=== PATIENT | male | born 1995 | race Caucasian/White ===

== ENCOUNTER 2024-10-08 14:58 | Emergency (ER) | payer SELFPAY ==
[2024-10-08 14:58] VITALS: BP 178/98; PULSE 74; RESP 18; TEMP 36.2; O2SAT 100; BMI 40.8
--- NOTE | 2024-10-08 15:07 | ED.RN ---
Patient states he was holding a kinked concrete hose from a concrete truck this morning when the hose lifted him off the ground and slammed him into the barn wall. Patient states this will not be a workers comp claim
--- NOTE | 2024-10-08 15:10 | RAD_ITS ---
STUDY: X-RAY - RIGHT SHOULDER REASON FOR EXAM: Male, 29 years old. Injury TECHNIQUE: 4 view(s) of the shoulder. COMPARISON: None. FINDINGS: Normal glenohumeral articulation. Normal acromioclavicular joint. Normal acromion. Normal humeral head and visualized proximal humerus. The soft tissue structures are unremarkable. Normal visualized pulmonary apex. RAD/Shoulder min 2 Views IMPRESSION: Normal x-ray examination of the shoulder. Electronically Signed: Saud Villa MD at 15:32 EST ,
--- NOTE | 2024-10-08 15:11 | EX.ED.UPPERE ---
HPI History of Present Illness Chief Complaint: Upper Extremity Injury Detail of Chief Complaint: Right shoulder injury Informant: patient Narrative Narrative: Patient presents to the emergency department complaint of injury to his right shoulder that occurred while at work today. 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 Patient complained of pain to the right shoulder with movement. Complains of numbness and tingling to the right hand. Denies weakness in extremity. Denies head injury. Patient does not want to file Workmen's Comp. as this is his company. [facility] Medical History (Updated 10/08/24 @ 15:[address] Jean Easton, DO) Inguinal hernia Home Medications ?Medication ?Instructions ?Recorded ?Last Taken ?Type hydrocodone-acetaminophen 5-325mg 1 tab PO Q4H PRN PRN Pain 2 days 10/08/24 Unknown Rx 5mg-325mg #10 TABLETS Allergy/AdvReac Type Severity Reaction Status Date / Time No Known Allergies Allergy Verified 10/08/24 15:03 Surgical History (Updated 10/08/24 @ 15:12 by Ysabel Hendricks) History of hernia surgery Social History Smoking Status: Heavy Smoker (>10/day) ROS ROS ED Review of Systems ROS Unobtainable: other Constitutional Constitutional ED: Reports lethargy; Denies chills, fever(s), sweats or weight loss Eyes Eyes: Denies blurry vision, change in vision or diplopia ENT ENT ED: Denies rhinorrhea or sore throat Cardiovascular Cardiovascular: Denies chest pain, orthopnea or racing heartbeat Respiratory/Chest Respiratory/Chest: Denies cough, dyspnea, dyspnea on exertion, orthopnea or sputum Gastrointestinal Gastrointestinal: Denies abdominal pain, diarrhea, nausea or vomiting Genitourinary Genitourinary ED: Denies dysuria, hematuria or urinary frequency Musculoskeletal Musculoskeletal: Reports other Details: Right shoulder pain/injury ; Denies arthralgias, back pain, myalgias or neck pain Integumentary Denies abscess, Abrasions or rash Neurologic Neurologic: Denies headache(s) or weakness Psychiatric Psychiatric: Denies anxiety, depression or suicidal thoughts Endocrine Endocrinology: Denies polydipsia, polyphagia or polyuria Hematologic/Lymphatic Hematologic/Lymphatic: Denies easy bleeding, easy bruising or lymphadenopathy Allergic/Immunologic Allergic/Immunologic ED: Denies mouth swelling, tongue swelling or urticaria EXAM Physical Exam Const Vital Signs: 10/08/24 14:58 Temperature 97.2 F L Temperature Source Temporal Pulse Rate 74 Respiratory Rate 18 Blood Pressure 178/98 H Blood Pressure Mean 124 Pulse Ox 100 Positive well nourished and well developed General Appearance ED: well developed and NAD HEENT Reports TM's clear and moist mucous membranes normocephalic and atraumatic; Negative for trauma or tenderness Tympanic Membrane ED: Yes TM's clear Eyes PERRL and EOMs intact bilaterally General Eye ED: Negative for pale conjunctiva or scleral icterus Neck no lymphadenopathy, supple and no JVD General: Negative for tenderness Chest Wall inspection of chest normal and palpation of chest normal Chest: Negative for tenderness Resp normal respiratory effort and clear to auscultation bilaterally Effort and Inspection: Negative for respiratory distress or pain with movement Auscultation: Negative for rhonchi, wheezes or diminished lung sounds Cardio regular rate, regular rhythm, S1 normal heart sound, S2 normal heart sound and no murmurs Peripheral Pulses: pulses 2+ throughout GI normal to inspection, nondistended, normoactive bowel sounds, soft to palpation, non-tender, non-distended and no masses Back/Spine no CVA tenderness and no thoracic nor lumbar tenderness Extremity Extremity Narrative: Right shoulder-no obvious deformity. There is no ecchymosis or bruising. Neurovascularly intact distally. He has limited range of motion in abduction secondary to pain. No sulcus sign. General Extremety ED: Negative for edema General Extremity: Negative for edema Neuro oriented x3, CN's II-XII intact bilaterally, no sensory deficits noted and gait normal Sensorium / Orientation: awake, alert, oriented to person, oriented to place and oriented to time Motor Exam: strength 5/5 throughout and strength abnormal Psych mental status grossly normal Skin no rashes or lesions noted and no wounds MDM MDM MDM Narrative Medical decision making narrative: Patient with injury to right shoulder. Will obtain x-rays to evaluate for any bony injury or dislocation which my suspicion is low. 2 view x-rays of the right shoulder obtained interpreted by myself as no evidence of fracture or dislocation. Radiology in agreement. This point he will be placed in a sling. He will be given a prescription for a few [place] for pain. Will refer to orthopedics for follow-up. Patient understands that he may require further imaging if symptoms do not resolve such as possibly MRI to evaluate for ligamentous injury or rotator cuff injury Radiography Diagnostic Testin view x-rays of right shoulder obtained interpreted by myself as no evidence of fracture or dislocation. Discharge Plan Triage Chief Complaint: Upper Extremity Injury ED Provider: Jean Easton Dx/Rx/DC Orders Clinical Impression: Sprain of shoulder, right Instructions: ED Shoulder Sprain Prescriptions: New hydrocodone-acetaminophen 5-325 mg tablet 1 tab PO Q4H PRN PRN (Reason: Pain) 2 Days Qty: 10 0RF Primary Care Provider: Care Physician,No Primary Referrals: Antoine Osullivan MD [Non-Staff] - Vega Lucio MD [Med Staff - Active Staff] - 5-7 Days Print Language: British Disposition Disposition: Home, Self Care Discharge Date/Time: 10/08/24 15:59
[2024-10-08 15:58] VITALS: BP 178/98; PULSE 74; RESP 18; TEMP 36.2; O2SAT 100
--- NOTE | 2024-10-08 15:59 | ED.RN ---
Ice placed to shoulder
== END 2024-10-08 15:59 | disposition home or self-care (01) ==
LOC: ED 15:46
PROVIDERS: Emergency Provider Emergency Medicine; Visit Provider Emergency Medicine
DX: S43.401A Unspecified sprain of right shoulder joint, initial encounter (principal); X58.XXXA Exposure to other specified factors, initial encounter; Y93.89 Activity, other specified; Y99.0 Civilian activity done for income or pay; F17.200 Nicotine dependence, unspecified, uncomplicated
CPT/HCPCS: 73030; 99283

== ENCOUNTER 2024-11-12 22:01 | Emergency (ER) | payer SELFPAY ==
[2024-11-12 22:02] VITALS: BP 160/85; PULSE 99; RESP 20; TEMP 36.4; O2SAT 99; BMI 40.5
--- NOTE | 2024-11-12 22:16 | EDS_ITS ---
HPI History of Present Illness Chief Complaint: Allergic Reaction Informant: patient Onset/Context/Timing Onset: Today Context: Sudden Onset Timing: Continuous Current Severity: Gone Maximum Severity: Moderate Narrative Narrative: Healthy 29-year-old male no seen past medical history. Said he come home from work today. Had a headache his takes Topamax for migraines so he took 40 mg of that. Said he took it around 9:30 PM. Soon after taking it he thought he was having allergic reaction. He felt like he was having swelling in his lower throat. He denies any rash or itching. He denies any swelling of his tongue or lips. He is never had allergic reaction before that he can remember. He said he is never taken Topamax before. He denies any other symptoms. Said on the way in he was feeling worse but now the symptoms have resolved. He took the medication at 9:30 pm he had a reaction within 15 minutes it is now 1015 and he is feeling back to baseline. Prior similar symptoms: No Recent Illness/Hospitalization: No PFSH PFSH Medical History Inguinal hernia Allergy/AdvReac Type Severity Reaction Status Date / Time topiramate (From Topamax) Allergy Severe Swelling Verified 11/12/24 22:06 Surgical History History of hernia surgery Social History Smoking Status: Heavy Smoker (>10/day) ROS ROS ED ROS Narrative Patient denies any recent illness the last 2 weeks other than what sounds like a viral URI which is resolved. Constitutional Constitutional ED: Denies chills or fever(s) Eyes Eyes: Denies blurry vision ENT ENT ED: Denies ear pain Cardiovascular Cardiovascular: Denies chest pain Respiratory/Chest Respiratory/Chest: Denies cough Gastrointestinal Gastrointestinal: Denies abdominal pain Genitourinary Genitourinary ED: Denies dysuria Musculoskeletal Musculoskeletal: Denies arthralgias Integumentary Denies abscess Neurologic Neurologic: Denies headache(s) Psychiatric Psychiatric: Denies anxiety Endocrine Endocrinology: Denies cold intolerance Hematologic/Lymphatic Hematologic/Lymphatic: Reports none Allergic/Immunologic Allergic/Immunologic ED: Denies mouth swelling, tongue swelling or urticaria EXAM Physical Exam Narrative Exam Narrative: Well-appearing 29-year-old male. Vital signs are stable afebrile. Pulse ox 9 9% on room air no signs of hypoxia. He sitting upright in bed. He looks perfectly fine. He is in no distress. H EENT exam pupils round react to light. Tongue and lips are normal. No swelling. Posterior pharynx normal. No trouble swallowing or breathing. No drooling or stridor. Neck nontender. Lungs clear to auscultation bilaterally. Heart regular rhythm rate about 90 no murmur. Chest wall ribs nontender. Abdomen soft nontender. Moving all 4 extremities. Nontender no edema. No rashes. Normal strength. Back nontender. No rash. Neurologically is awake and alert no focal motor deficits. Currently at this moment there is no signs of acute allergic reaction. Const Vital Signs: 11/12/24 22:02 Temperature 97.6 F L Temperature Source Temporal Pulse Rate 99 Respiratory Rate 20 H Blood Pressure 160/85 H Blood Pressure Mean 110 Pulse Ox 99 Oxygen Delivery Method Room Air Positive well nourished and well developed; Negative for cachectic, contractures or unkempt General Appearance ED: well developed and NAD; Negative for unkempt, cachectic, contractures, cyanotic, diaphoretic or pallor Nutritional Appearance: Negative for cachectic HEENT Reports moist mucous membranes Negative for trauma or tenderness Eyes PERRL and EOMs intact bilaterally General Eye ED: Negative for pale conjunctiva or scleral icterus Neck no lymphadenopathy, supple and no JVD General: Negative for tenderness Chest Wall inspection of chest normal and palpation of chest normal Resp normal respiratory effort and clear to auscultation bilaterally Effort and Inspection: Negative for retractions Auscultation: Negative for rales, rhonchi, wheezes or diminished lung sounds Cardio regular rate, regular rhythm, S1 normal heart sound, S2 normal heart sound and no murmurs GI normal to inspection, nondistended, normoactive bowel sounds, non-tender, non- distended and no masses Palpation: soft; Negative for tender, guarding or rebound tenderness present Back/Spine no CVA tenderness General Back: Negative for CVA tenderness Cervical Spine: Negative for cervical spine tenderness Thoracic Spine / Upper Back: Negative for thoracic spinal tenderness or paraspinal muscle tenderness Lumbar Spine / Lower Back: Negative for lumbar spinal tenderness Extremity normal to inspection General Extremety ED: Negative for edema or tenderness General Extremity: Negative for edema Neuro oriented x3, CN's II-XII intact bilaterally and no sensory deficits noted Sensorium / Orientation: alert; Negative for orientation impaired, lethargic or stuporous Motor Exam: strength 5/5 throughout Psych mental status grossly normal Appearance: Negative for unkempt Attitude: No agitated Mood & Affect: Negative for depressed, anxious or tearful Skin no rashes or lesions noted, no wounds and skin turgor normal General Skin Exam: elasticity normal; Negative for jaundice or pallor Lesions: No lesion noted Rashes: No rashes noted Trauma: Negative for abrasion Wounds: Negative for wounds noted MDM MDM MDM Narrative Medical decision making narrative: 29-year-old male possibly may have had allergic reaction to Topamax. Currently his exam is normal. There is no signs of a reaction currently. He has no lip or tongue swelling. No trouble breathing. No stridor or drooling. There is no rash. He is not itching. He will be observed. I do not think he needs any medications. There is no specific testing needs from the emergency department standpoint. Repeat exam at 10:50 p.m. patient doing well. No distress. No symptoms. No signs of allergic reaction. Lips and tongue are normal. Breathing normal without wheezing. Skin without rash. He is totally back to baseline says he feels fine. Even the headache he had that he took the Topamax for is completely resolved. This may have been an allergic reaction the way explains it to me he has no physical findings here he has been observed for about an hour he will be discharged to home. History & Record Review Discussion w/independent historian: Patient Discharge Plan Triage Chief Complaint: Allergic Reaction ED Provider: Julien Felder Dx/Rx/DC Orders Clinical Impression: Allergic reaction Instructions: ED General Allergic Reactions Primary Care Provider: Care Physician,No Primary Referrals: Care Physician,No Primary [Primary Care Provider] - Activity Restrictions/Additional Instructions: You should not have any other symptoms tonight. If you would develop a rash or swelling you can take 25 or 50 mg of Benadryl. She would notice tongue or lip swelling return to the emergency department. Print Language: Georgian Disposition Disposition: Home, Self Care
[2024-11-12 22:53] VITALS: BP 127/87; PULSE 66; RESP 16; TEMP 36.6; O2SAT 100
== END 2024-11-12 22:53 | disposition home or self-care (01) ==
LOC: ED 22:35
PROVIDERS: Emergency Provider Emergency Medicine; Referring Provider Emergency Medicine; Visit Provider Emergency Medicine
DX: T78.40XA Allergy, unspecified, initial encounter (principal); F17.200 Nicotine dependence, unspecified, uncomplicated
CPT/HCPCS: 99282

== ENCOUNTER 2025-03-03 21:01 | Emergency (ER) | payer SELFPAY ==
[2025-03-03 21:01] VITALS: BP 152/89; PULSE 85; RESP 16; TEMP 36.8; O2SAT 96; BMI 39.4
--- NOTE | 2025-03-03 21:10 | ED.RN ---
attempted to return eye strip. barcode not accepted. this RN still put in bin
--- NOTE | 2025-03-03 21:30 | EX.ED.DYSGE1 ---
HPI <NAZ Burgos - Last Filed: 03/03/25 21:39> History of Present Illness Chief Complaint: Foreign Body Narrative Narrative: Patient is a 29-year-old male with no significant medical history, patient presents to the emerged part with left eye pain. 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 There is a small foreign body to the left eye. Here for evaluation. [facility] <NAZ Burgos - Last Filed: 03/03/25 21:39> [facility] Medical History Inguinal hernia Home Medications ?Medication ?Instructions ?Recorded ?Last Taken ?Type bacitracin 500 unit/gram eye 1 applic LEFT EYE .Q6 5 days #3.5 03/03/25 Unknown Rx ointment grams Allergy/AdvReac Type Severity Reaction Status Date / Time topiramate (From Topamax) Allergy Severe Swelling Verified 03/03/25 21:02 Surgical History History of hernia surgery Social History Smoking Status: Heavy Smoker (>10/day) ROS <NAZ Burgos - Last Filed: 03/03/25 21:39> ROS ED ROS Narrative Constitutional: Negative for fever, chills, weight loss, weakness Eyes: Negative for vision loss, vision change, double vision ENT: Negative for any sore throat, ear pain, congestion. Positive for left eye pain Cardiovascular: Negative for any chest pain, tightness, palpitations Respiratory: Negative for any cough, sputum production, hemoptysis, dyspnea, dyspnea on exertion, orthopnea Gastrointestinal: Negative for any abdominal pain, nausea, vomiting, diarrhea, constipation, blood in stool, blood in vomit : Negative for any urinary frequency, dysuria, retention, blood in urine Muscle skeletal: Negative for any neck pain, back pain Neurological: Negative for any headache, syncope, dizziness Skin: Negative for any rashes, itching, abrasions, lacerations Psychiatric: Negative for any depression, anxiety, stress, suicidal ideation, homicidal ideation Hematologic: Negative for any excessive bruising, easy bleeding EXAM <NAZ Burgos - Last Filed: 03/03/25 21:39> Physical Exam Narrative Exam Narrative: Vital signs reviewed. HEET: Head normocephalic atraumatic, TMs clear bilaterally. Posterior pharynx is clear, moist mucous membranes. Nares clear bilaterally. I was able to tetracaine the eye to evaluate. Patient did have a foreign body to the 3:00 area of the left cornea. This is me looking at the patient. No other evaluation. Neck: Supple with no lymphadenopathy or tenderness. No signs of meningismus. Cardiac: Regular rate and rhythm no murmurs gallops or rubs, equal peripheral pulses bilaterally. Respiratory: Lungs clear to auscultation bilaterally. No chest tenderness. Abdomen: Soft, nontender, nondistended. No abdominal bruit or pulsatile masses. No hepatosplenomegaly Extremities: No peripheral edema, no signs of gross trauma or deformity. Active full range of motion of all extremities. Neuro: Cranial nerves II through XII intact, no focal neurological deficits. Skin: Clean dry and intact with no rash, purpura, petechiae, vesicles or pustules. Backs/flank: No CVA tenderness, no midline spinal tenderness, no deformity. Psych: Normal mood and affect. No SI, HI or acute psychosis. Const Vital Signs: 03/03/25 21:01 03/03/25 21:15 Temperature 98.2 F Temperature Source Oral Pulse Rate 85 Respiratory Rate 16 Respiratory Effort Normal Non-Labored Respiratory Pattern Normal Blood Pressure 152/89 H Blood Pressure Mean 110 Pulse Ox 96 Oxygen Delivery Method Room Air <Dr. Maurice Ross, DO - Last Filed: 03/03/25 21:37> Physical Exam Const Vital Signs: 03/03/25 21:01 03/03/25 21:15 Temperature 98.2 F Temperature Source Oral Pulse Rate 85 Respiratory Rate 16 Respiratory Effort Normal Non-Labored Respiratory Pattern Normal Blood Pressure 152/89 H Blood Pressure Mean 110 Pulse Ox 96 Oxygen Delivery Method Room Air MDM <NAZ Burgos - Last Filed: 03/03/25 21:39> [facility] Treatment and Re-Evaluation :: Differential diagnosis includes however is not limited to: Foreign body, corneal abrasion, globe rupture, ulcer Patient appears generally well, vital signs are stable, patient is nontoxic-appearing. Presenting to the emergency department with complaints of foreign body left eye. I was able to tetracaine in the eye, fluorescein stain, there was corneal abrasion with a foreign body at the 3:00 area of the cornea. There is no Sidel sign, no uptake. I was able to get 25-gauge needle and flick out the foreign body piece. Patient still feels slight irritation, this will be irrigated with a Law lens. Bacitracin ophthalmic ointment. Patient will follow-up with both his PCP as well as a eye doctor. Agreeable with this plan. I did offer patient tetanus vaccination he refused at this time. All questions answered, patient struck to return for any worsening symptoms <Dr. Maurice Ross, DO - Last Filed: 03/03/25 21:37> [facility] Narrative Medical decision making narrative: I have personally performed a face to face assessment of the patient and have reviewed the HEATHER Note. I performed a substantive portion of the visit including all aspects of the following. My brink findings include: History: Patient presents with foreign body sensation in his left eye that occurred today. Patient states he was welding and after he was done welding, he flipped his mask up. Patient states that he noted 1 other spot that needed welded. Patient states he touched it with the welding stick and something flew into his left eye. Patient denies any visual changes. Patient denies any headache. Exam: Pupils are equal, round, and reactive to light bilaterally. Extraocular muscles are intact. Conjunctiva was injected left. There is a corneal abrasion over the inferior aspect of the left cornea. There are no foreign bodies visualized. Anterior chamber was clear. There is no hyphema. Funduscopic examination was not tolerated. Medical Decision Making: The foreign body was removed by the HEATHER under my supervision. Patient states he still feels like there may be something in his left eye. Patient feels like this is more on the medial conjunctival area. There is a questionable foreign body over this area. The left eye was irrigated with normal saline through a Law lens. Patient was given bacitracin ophthalmic ointment. Patient was instructed to follow-up with ophthalmology in 1 to 2 days. Patient was instructed to return if worse in any way. Patient understood and was agreeable with the plan. All questions were answered. Discharge Plan Triage Chief Complaint: Foreign Body ED Midlevel Provider: True Morrissey ED Provider: Maurice Ross Dx/Rx/DC Orders Clinical Impression: Eye foreign body, Abrasion, corneal Instructions: Corneal Injury Prescriptions: New bacitracin 500 unit/gram ointment 1 applic LEFT EYE .Q6 5 Days Qty: 3.5 0RF Primary Care Provider: Care Physician,No Primary Referrals: Joey Felton MD [Med Staff - Active Staff] - Care Physician,No Primary [Primary Care Provider] - Activity Restrictions/Additional Instructions: Use the eye ointment as show to every 6 hours while awake. you need to follow-up with an eye doctor to ensure proper healing. Return for any worsening symptoms. Print Language: Trinidadian Disposition Disposition: Home, Self Care
[2025-03-03] MEDS: Bacitracin/Polymin B Sulfate 3.5 GM OPTH.TUBE 1 APPLIC LEFT EYE (21:46)
[2025-03-03] MEDS: Fluorescein 1 MG STRIP 1 STRIP RIGHT EYE (21:47)
[2025-03-03] MEDS: Tetracaine 0.5% Ophthalmic Bottle 1 DRP RIGHT EYE (21:47)
== END 2025-03-03 21:49 | disposition home or self-care (01) ==
PROVIDERS: Emergency Provider Emergency Medicine; Visit Provider Emergency Medicine
DX: T15.02XA Foreign body in cornea, left eye, initial encounter (principal); Y93.H3 Activity, building and construction; F17.200 Nicotine dependence, unspecified, uncomplicated
CPT/HCPCS: 65220; 99284; A4216